=== PATIENT | male | born 1955 | race Caucasian/White ===

== ENCOUNTER 2017-05-08 08:44 | Emergency (ER) | payer OTHER ==
[2017-05-08] MEDS ORDERED: Sodium Chloride 0.9% 10 ML Syringe FLUSH PRN (09:34)
[2017-05-08] MEDS ORDERED: Morphine 2 MG/ML Syringe IVPUSH ONE ×2 (09:39→11:23)
[2017-05-08] MEDS ORDERED: Ondansetron 4 MG/2 ML SDV IVPUSH ONE (09:39)
[2017-05-08] MEDS ORDERED: Sodium Chloride 0.9% 1,000 ML IV SCH (09:45)
--- NOTE | 2017-05-08 09:49 | EDM.PDOC ---
<Ayana Loco - Last Filed: 05/08/17 09:43> ED HPI GENERAL MEDICAL PROBLEM - General Chief Complaint: Back Pain or Injury Stated Complaint: LEFT SIDE BACK PAIN SENT FROM [facility] Time Seen by Provider: 05/08/17 09:21 - History of Present Illness INITIAL COMMENTS - FREE TEXT/NARRATIVE: Patient is a 61 year old male here for complaints of lower back pain that began about 12:30am this morning. He states the pain woke him up and he was unable to get to sleep or find a comfortable position. He had some associated sweating with the pain, but denies nausea or vomiting. The pain is worse on the left and radiates around into his left groin. He rates the pain a 8/10 and has not tried anything for pain. He states he has drank at least 4 16 oz glasses of water, but has not urinated yet today. He states he passed a kidney stone without treatment about 7 years ago. He takes no chronic medications. 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 left lower flank Pain Score (Numeric/FACES): 6 - Related Data Allergies Allergy/AdvReac Type Severity Reaction Status Date / Time Sulfa (Sulfonamide Allergy Headache Verified 05/08/17 08:53 Antibiotics) Home Meds: Home Meds . [No Known Home Meds] 05/08/17 [History] Past Medical History - Past Health History Medical/Surgical History: Denies Medical/Surgical History Genitourinary History: Reports: Renal Calculus Social & Family History - Family History Family Medical History: Noncontributory - Tobacco Use Smoking Status *Q: Never Smoker - Caffeine Use Caffeine Use: Reports: None - Recreational Drug Use Recreational Drug Use: No ED ROS GENERAL - Review of Systems Review Of Systems: See Below Constitutional: Reports: No Symptoms Respiratory: Reports: No Symptoms Cardiovascular: Reports: No Symptoms GI/Abdominal: Reports: No Symptoms. Denies: Abdominal Pain : Reports: No Symptoms ED EXAM,LOWER BACK PAIN/INJURY - Physical Exam Exam Limited By: No Limitations General Appearance: Alert, Mild Distress Respiratory/Chest: No Respiratory Distress, Normal Breath Sounds Cardiovascular: Regular Rate, Rhythm GI/Abdominal: Normal Bowel Sounds, No Distention Psychiatric: Normal Affect, Normal Mood Course - Vital Signs Last Recorded V/S: Last Vital Signs Temp 97 F 05/08/17 08:48 Pulse 57 L 05/08/17 08:48 Resp 18 05/08/17 08:48 BP 150/89 H 05/08/17 08:48 Pulse Ox 99 05/08/17 08:48 - Orders/Labs/Meds Orders: Active Orders 24 hr Category Date Time Status Peripheral IV Care [RC] . DIRECTED Care 05/08/17 09:34 Active UA W/MICROSCOPIC [URIN] Stat Lab 05/08/17 09:15 Ordered Sodium Chloride 0.9% [Normal Saline] 1,000 ml Med 05/08/17 09:45 Active IV ASDIRECTED Sodium Chloride 0.9% [Saline Flush] Med 05/08/17 09:34 Active 10 ml FLUSH ASDIRECTED PRN Peripheral IV Insertion Adult [OM.PC] Stat Oth 05/08/17 09:34 Ordered Medication Orders Sodium Chloride (Normal Saline) 1,000 mls @ 150 mls/hr IV ASDIRECTED DELVIN Last Admin: 05/08/17 09:49 Dose: 150 mls/hr Sodium Chloride (Saline Flush) 10 ml FLUSH ASDIRECTED PRN PRN Reason: Keep Vein Open Last Admin: 05/08/17 09:53 Dose: 10 ml Labs: Laboratory Tests 05/08/17 05/08/17 Range/Units 09:10 09:10 WBC 10.26 H (4.23-9.07) K/mm3 RBC 5.20 (4.63-6.08) M/mm3 Hgb 15.6 (13.7-17.5) gm/L Hct 44.4 (40.1-51.0) % MCV 85.4 (79.0-92.2) fl MCH 30.0 (25.7-32.2) pg MCHC 35.1 (32.2-35.5) g/dl RDW Std Deviation 39.5 (35.1-43.9) fL Plt Count 219 (163-337) K/mm3 MPV 9.3 L (9.4-12.3) fl Neut % (Auto) 90.5 H (34.0-67.9) % Lymph % (Auto) 4.6 L (21.8-53.1) % [place] % (Auto) 4.3 L (5.3-12.2) % Eos % (Auto) 0.2 L (0.8-7.0) Baso % (Auto) 0.2 (0.1-1.2) % Neut # (Auto) 9.29 H (1.78-5.38) K/mm3 Lymph # (Auto) 0.47 L (1.32-3.57) K/mm3 [place] # (Auto) 0.44 (0.30-0.82) K/mm3 Eos # (Auto) 0.02 L (0.04-0.54) K/mm3 Baso # (Auto) 0.02 (0.01-0.08) K/mm3 Manual Slide Review Abnormal smear Sodium 135 L (136-145) mEq/L Potassium 3.5 (3.5-5.1) mEq/L Chloride 100 (98-107) mEq/L Carbon Dioxide 23 (21-32) mEq/L Anion Gap 15.5 H (5-15) BUN 15 (7-18) mg/dL Creatinine 1.5 H (0.7-1.3) mg/dL Est Cr Clr Drug Dosing 46.45 mL/min Estimated GFR (MDRD) 48 (>60) mL/min BUN/Creatinine Ratio 10.0 L (14-18) Glucose 116 H (80-115) mg/dL Calcium 8.9 (8.5-10.1) mg/dL Total Bilirubin 1.0 (0.2-1.0) mg/dL AST 24 (15-37) U/L ALT 38 (16-63) U/L Alkaline Phosphatase 91 (46-116) U/L Total Protein 7.4 (6.4-8.2) g/dl Albumin 3.9 (3.4-5.0) g/dl Globulin 3.5 gm/dL Albumin/Globulin Ratio 1.1 (1-2) Meds: Medications Generic Name Dose Route Start Last Admin Trade Name Freq PRN Reason Stop Dose Admin Sodium Chloride 1,000 mls @ 150 mls/hr 05/08/17 09:45 05/08/17 09:49 Normal Saline IV 150 mls/hr ASDIRECTED DELVIN Administration Sodium Chloride 10 ml 05/08/17 09:34 05/08/17 09:53 Saline Flush FLUSH 10 ml ASDIRECTED PRN Administration Keep Vein Open Discontinued Medications Generic Name Dose Route Start Last Admin Trade Name Toddq PRN Reason Stop Dose Admin Morphine Sulfate 4 mg 05/08/17 09:39 05/08/17 09:51 Morphine IVPUSH 05/08/17 09:40 4 mg ONETIME ONE Administration Ondansetron HCl 4 mg 05/08/17 09:39 05/08/17 09:50 Zofran IVPUSH 05/08/17 09:40 4 mg ONETIME ONE Administration Departure - Departure Disposition: DC/Tfer to [facility] 02 Clinical Impression: Kidney stone on left side, Hydronephrosis due to obstruction of ureter - Discharge Information Referrals: PCP,None [Primary Care Provider] - Forms: ED Department Discharge Additional Instructions: Transfer to [facility] ED, [place]. You will be reevaluated there , admitted for stone removal. You may drink water but eating not recommended at this time not knowing when the procedure will be done. You have been given sedating pain medication while here in the ED so do not personally drive for the remainder of today. - My Orders Last 24 Hours: My Active Orders 05/08/17 09:15 UA W/MICROSCOPIC [URIN] Stat 05/08/17 09:34 Peripheral IV Care [RC] . DIRECTED Sodium Chloride 0.9% [Saline Flush] 10 ml FLUSH ASDIRECTED PRN Peripheral IV Insertion Adult [OM.PC] Stat 05/08/17 09:45 Sodium Chloride 0.9% [Normal Saline] 1,000 ml IV ASDIRECTED - Assessment/Plan Last 24 Hours: My Active Orders 05/08/17 09:15 UA W/MICROSCOPIC [URIN] Stat 05/08/17 09:34 Peripheral IV Care [RC] . DIRECTED Sodium Chloride 0.9% [Saline Flush] 10 ml FLUSH ASDIRECTED PRN Peripheral IV Insertion Adult [OM.PC] Stat 05/08/17 09:45 Sodium Chloride 0.9% [Normal Saline] 1,000 ml IV ASDIRECTED <Josh Dixon - Last Filed: 05/08/17 11:26> ED ROS GENERAL - Review of Systems : Denies: Frequency, Pain, Urgency Musculoskeletal: Reports: Back Pain (Left back, left flank discomfort radiating to left groin), Other Skin: Reports: No Symptoms Neurological: Reports: No Symptoms ED EXAM,LOWER BACK PAIN/INJURY - Physical Exam Exam: See Below Throat/Mouth: Normal Inspection Head: Atraumatic GI/Abdominal: Non-Tender Back Exam: No: CVA Tenderness (L), CVA Tenderness (R) Extremities: Normal Inspection, Normal Range of Motion Neurological: Alert, No Motor/Sensory Deficits, Oriented x 3 Skin Exam: Warm, Dry, Normal Color Course - Re-Assessments/Exams Free Text/Narrative Re-Assessment/Exam: 05/08/17 10:36 Initial hx and exam was done by Ayana Monique. I agree with her hx and exam as documented. I have also visited with patient, examined patient. Renal CT does show 6 mm obstructing stone distal left ureter near the UVJ. See radiology report for details. We have given morphine 4 mg IV, Zofran 4 mg IV. 05/08/17 11:18. Have discussed with Dr Abdalla, Urologist's nurse, [place]. He suggests transfer to [facility] [place] for admission for stone removal. We will be sending him by private vehicle, his daughter will drive him. Dr Dobson, ED accepting Phys. Departure - Departure Time of Disposition: 11:22 Condition: Fair
--- NOTE | 2017-05-08 10:25 | CT ---
CT abdomen and pelvis Technique: Multiple axial sections were obtained from above the dome of the diaphragm inferiorly through the pubic symphysis. Intravenous and oral contrast was not utilized. Study has been performed as a ureteral stone protocol. Comparison: No previous study. Findings: Hydronephrosis is seen of the left kidney and ureter. Inflammatory change is noted around the left kidney. These findings are caused by an obstructing stone located within the distal left ureter measuring 6 mm and is located near the UVJ. No other abnormal calcifications are seen along the course of the ureters. No abnormal calcifications are seen within the kidneys. Incidental calcified splenic granulomas are seen. Calcified granuloma is noted within the left lung base. Noncontrast appearance of the liver appears within normal limits. Gallbladder contains no calcified gallstones. Adrenal glands show no nodule. Pancreas is within normal limits. Aorta shows no aneurysmal dilatation. No retroperitoneal adenopathy is seen. No mesenteric abnormalities are identified. No bowel dilatation is seen. Appendix is felt to be visualized and appears normal in size. Bone window settings were reviewed which appear within normal limits for the patient's age. Impression: 1. Obstructing 6 mm calculus within the distal left ureter near the UVJ. 2. Other incidental findings as noted above. Diagnostic code #3
== END 2017-05-08 12:00 ==
LOC: JD.ED 08:44
DX: N13.2 Hydronephrosis with renal and ureteral calculous obstruction (principal); Z88.2 Allergy status to sulfonamides
CPT/HCPCS: 36415; 74176; 80053; 81001; 85025; 96361; 96374; 96375; 96376; 99285; J2270; J2405; J7040; J7050; 99284

== ENCOUNTER 2021-01-21 09:06 | Emergency (ER) | payer OTHER, MEDICARE ==
--- NOTE | 2021-01-21 09:26 | EDM.PDOC ---
ED HPI GENERAL MEDICAL PROBLEM - General Chief Complaint: Respiratory Problem Stated Complaint: COVID+ COUGH Time Seen by Provider: 01/21/21 09:25 Source of Information: Reports: Patient History Limitations: Reports: No Limitations - History of Present Illness INITIAL COMMENTS - FREE TEXT/NARRATIVE: 65-year-old male presents to the ED after being seen at the walk-in clinic this morning. Chief complaint is severe paroxysmal cough to the point of emesis at times. Patient was diagnosed with COVID-19 positivity on January 16. He was exposed the day prior to a person who has Covid but was not telling anybody that he was positive. Patient of course is quite frustrated by this. He has not been vaccinated against COVID-19 illness. Developed fever chills body aches minimal nasal congestion with retention of smell and taste. Mild sore throat severe paroxysmal cough to the point of emesis on multiple occasions. Diarrhea this morning for the first time yellow and liquidy. Loss of appetite. Has not been able to sleep due to paroxysmal cough for the last 3 days. Has been sitting up in bed to try and relieve cough. Been taking Tylenol Motrin intermittently for fever relief. Patient states his contracted the illness first and was seen through the ED a week ago. Onset: Sudden Onset Date: 01/16/21 Duration: Day(s):, Getting Worse Location: Reports: Head (Headache), Neck, Chest (Mild sore throat minimal nasal congestion severe paroxysmal cough of occasional white sputum often associated with vomiting from coughing so hard), Other (Generalized myalgia fever and chills mild diarrhea this morning) Quality: Reports: Ache, Throbbing (.) Severity: Moderate (8 out of 10) Improves with: Reports: Rest (He feels if he could sleep he would feel better) Worsens with: Reports: Movement (And paroxysmal cough) Context: Reports: Sick Contact (Opposed to a person). Denies: Activity, Exercise, Lifting, Trauma ( with COVID-19 illness day prior to onset of illness.), Other Associated Symptoms: Reports: Cough, cough w sputum (Severe paroxysmal cough to the point of emesis occasional white), Diaphoresis ( sputum), Fever/Chills, Headaches, Loss of Appetite, Malaise, Nausea/Vomiting, Shortness of Breath (Subjective dyspnea [place]), Weakness ( cannot take a deep breath without coughing.), Other (Complete loss of appetite.). Denies: Rash (Posttussive vomiting), Seizure Treatments [employer]: Reports: Acetaminophen Chest Pain Score (Numeric/FACES): 5 - Related Data Allergies Allergy/AdvReac Type Severity Reaction Status Date / Time Sulfa (Sulfonamide AdvReac Headache Verified 01/21/21 09:22 Antibiotics) Home Meds: Home Meds Hydrocodone/Chlorphen P-Stirex [Hydrocodone-Chlorphen ER Susp] 5 ml PO Q12H PRN #60 ml 01/21/21 [Rx] Potassium Chloride 20 meq PO BID #5 tablet.er 01/21/21 [Rx] Past Medical History - Past Health History Medical/Surgical History: Denies Medical/Surgical History Genitourinary History: Reports: Renal Calculus - Past Surgical History GI Surgical History: Reports: Appendectomy (Age 7 when he had his hernia surgery on the left side.?), Hernia, Inguinal (Left inguinal hernia raphe at age 7. He believes he also had a appendectomy carried out at that time.) Social & Family History - Family History Family Medical History: No Pertinent Family History - Tobacco Use Tobacco Use Status *Q: Never Tobacco User - Caffeine Use Caffeine Use: Reports: None - Living Situation & Occupation Living situation: Reports: Occupation: Employed ED ROS GENERAL - Review of Systems Review Of Systems: See Below ( is asymptomatic at this time) Constitutional: Reports: Fever, Chills, Malaise, Weakness, Fatigue, Decreased Appetite HEENT: Reports: Glasses, Rhinitis, Throat Pain Respiratory: Reports: Shortness of Breath, Cough, Sputum (Severe paroxysmal cough to the point of emesis at times slightly). Denies: Wheezing, Pleuritic Chest Pain, Hemoptysis ( green-tinged sputum.) Cardiovascular: Reports: Chest Pain, Lightheadedness (From coughing so hard). Denies: Blood Pressure Problem (Upper anterior chest pain from coughing so much), Claudication, Dyspnea on Exertion, Orthopnea, Palpitations, Syncope, Other Endocrine: Reports: Fatigue GI/Abdominal: Reports: Diarrhea (One loose diarrhea stool this morning), Decreased Appetite, Nausea, Vomiting (Posttussive vomiting) : Reports: Other (Urine is dark and aidan in color) Musculoskeletal: Reports: Muscle Pain (Neurolyse myalgia particularly head neck) Skin: Reports: No Symptoms ( lower back and thigh muscles) Neurological: Reports: Dizziness, Headache, Difficulty Walking Psychiatric: Reports: No Symptoms Hematologic/Lymphatic: Reports: No Symptoms (Due to weakness) Immunologic: Reports: No Symptoms ED EXAM, GENERAL - Physical Exam Exam: See Below Exam Limited By: No Limitations General Appearance: Alert, WD/WN, Moderate Distress (Near paroxysmal cough to the point that he can barely talk.), Other (Feels very warm to palpation nurses recorded temperature of 38.4 degrees. Heart rate is 80 and sinus respiratory is 20 with O2 sats of 92 to 94% room air BP 120/83) Eye Exam: Bilateral Eye: Normal Inspection (No blepharal pallor or scleral icterus), PERRL Ears: Normal TMs Throat/Mouth: Normal Inspection, Normal Lips, Normal Teeth, Normal Voice Head: Atraumatic, Normocephalic Neck: Normal Inspection, Supple, Non-Tender, Full Range of Motion. No: Carotid Bruit, Lymphadenopathy (L), Lymphadenopathy (R) Respiratory/Chest: Lungs Clear, No Accessory Muscle Use, Respiratory Distress (Tachypnea at rest with harsh paroxysmal nonproductive cough). No: Rhonchi, Wheezing, Stridor, Pleural Rub Cardiovascular: Normal Peripheral Pulses, Regular Rate, Rhythm, No Edema, No Gallop, No JVD, No Rub Peripheral Pulses: 3+: Carotid (L), Carotid (R), Posterior Tibial (L), Posterior Tibial (R), Dorsalis Pedis (L), Dorsalis Pedis (R) GI/Abdominal: Normal Bowel Sounds, Soft, Non-Tender, No Organomegaly, Other (Scaphoid abdomen. Left inguinal hernia raphe scar) Back Exam: Normal Inspection, Full Range of Motion. No: CVA Tenderness (L), CVA Tenderness (R) Extremities: Normal Inspection, Normal Range of Motion, Non-Tender, No Pedal Edema Neurological: Alert, Oriented, CN II-XII Intact, Normal Cognition Psychiatric: Anxious Skin Exam: Warm, Dry, Intact, Normal Color, No Rash #1 Interpretation EKG Date: 01/21/21 Time: 09:51 Rhythm: NSR Rate (Beats/Min): 80 [place]: LAD-Left [place] Deviation (Mild left axis deviation -9 degrees) P-Wave: Present (Borderline short NE interval.) QRS: Other (Early R wave transition V2 consider right ventricular hypertrophy versus septal hypertrophy pattern) ST-T: Depressed (Diffuse ST segment depression V3 to V6 also appreciated in leads I and II and aVF. Consider ischemia but this most likely represents repolarization abnormality) QT: Normal EKG Interpretation Comments: Borderline ECG Course - Vital Signs Last Recorded V/S: Last Vital Signs Temp 38.4 C H 01/21/21 09:16 Pulse 80 01/21/21 09:16 Resp 20 01/21/21 09:16 BP 120/83 01/21/21 09:16 Pulse Ox 92 L 01/21/21 09:16 - Orders/Labs/Meds Orders: Active Orders 24 hr Category Date Time Status Vital Signs [RC] Q15M Care 01/21/21 10:14 Active Dextrose 5%-0.9% NaCl [Dextrose 5%-Normal Saline] 1,000 Med 01/21/21 09:45 Active ml IV ASDIRECTED EPINEPHrine [Adrenalin] Med 01/21/21 10:14 Active 0.3 mg IM ASDIRECTED PRN Famotidine [Pepcid] Med 01/21/21 10:14 Active 20 mg IVPUSH ASDIRECTED PRN Sodium Chloride 0.9% [Saline Flush] Med 01/21/21 10:15 Active 30 ml FLUSH ASDIRECTED diphenhydrAMINE [Benadryl] Med 01/21/21 10:14 Active 50 mg IVPUSH ASDIRECTED PRN methylPREDNISolone Sod Succ [Solu-MEDROL] Med 01/21/21 10:14 Active 125 mg IVPUSH ASDIRECTED PRN Medication Orders Diphenhydramine HCl (Diphenhydramine 50 Mg/Ml Sdv) 50 mg IVPUSH ASDIRECTED PRN PRN Reason: hypersensitivity reaction Epinephrine HCl (Epinephrine 1 Mg/Ml Sdv) 0.3 mg IM ASDIRECTED PRN PRN Reason: hypersensitivity reaction Famotidine (Famotidine 20 Mg/2 Ml Sdv) 20 mg IVPUSH ASDIRECTED PRN PRN Reason: hypersensitivity reaction Dextrose/Sodium Chloride (Dextrose 5%-Normal Saline) 1,000 mls @ 250 mls/hr IV ASDIRECTED DELVIN Last Admin: 01/21/21 10:14 Dose: 250 mls/hr Documented by: MARINO Methylprednisolone Sodium Succinate (Methylprednisolone Sodium Succinate 125 Mg/2 Ml Sdv) 125 mg IVPUSH ASDIRECTED PRN PRN Reason: hypersensitivity reaction Sodium Chloride (Sodium Chloride 0.9% 10 Ml Syringe) 30 ml FLUSH ASDIRECTED DELVIN Labs: Laboratory Tests 01/21/21 01/21/21 01/21/21 Range/Units 09:40 09:40 09:40 WBC 4.14 L (4.23-9.07) K/mm3 RBC 5.10 (4.63-6.08) M/mm3 Hgb 15.3 (13.7-17.5) gm/dl Hct 44.3 (40.1-51.0) % MCV 86.9 (79.0-92.2) fl MCH 30.0 (25.7-32.2) pg MCHC 34.5 (32.2-35.5) g/dl RDW Std Deviation 42.2 (35.1-43.9) fL Plt Count 139 L D (163-337) K/mm3 MPV 9.3 L (9.4-12.3) fl Neut % (Auto) 80.3 H (34.0-67.9) % Lymph % (Auto) 11.8 L (21.8-53.1) % Oliver % (Auto) 7.5 (5.3-12.2) % Eos % (Auto) 0 L (0.8-7.0) Baso % (Auto) 0.2 (0.1-1.2) % Neut # (Auto) 3.32 (1.78-5.38) K/mm3 Lymph # (Auto) 0.49 L (1.32-3.57) K/mm3 Oliver # (Auto) 0.31 (0.30-0.82) K/mm3 Eos # (Auto) 0.00 L (0.04-0.54) K/mm3 Baso # (Auto) 0.01 (0.01-0.08) K/mm3 PT 10.9 (9.7-12.0) SECONDS INR 0.98 APTT 33.3 H (21.7-31.4) SECONDS D-Dimer, Quantitative (0.19-0.50) mg/L Sodium 133 L (136-145) mEq/L Potassium 2.8 L (3.5-5.1) mEq/L Chloride 95 L (98-107) mEq/L Carbon Dioxide 26 (21-32) mEq/L Anion Gap 14.8 (5-15) BUN 13 (7-18) mg/dL Creatinine 1.2 (0.7-1.3) mg/dL Est Cr Clr Drug Dosing 59.06 mL/min Estimated GFR (MDRD) > 60 (>60) mL/min BUN/Creatinine Ratio 10.8 L (14-18) Glucose 101 H (70-99) mg/dL Calcium 8.0 L (8.5-10.1) mg/dL Magnesium 1.8 (1.8-2.4) mg/dL Total Bilirubin 0.8 (0.2-1.0) mg/dL AST 53 H (15-37) U/L ALT 35 (16-63) U/L Alkaline Phosphatase 82 (46-116) U/L Lactate Dehydrogenase 318 H (85-227) U/L Troponin I < 0.017 (0.00-0.056) ng/mL C-Reactive Protein 5.3 H* (<1.0) mg/dL NT-Pro-B Natriuret Pep (0-125) pg/mL Total Protein 7.1 (6.4-8.2) g/dl Albumin 3.2 L (3.4-5.0) g/dl Globulin 3.9 gm/dL Albumin/Globulin Ratio 0.8 L (1-2) 01/21/21 01/21/21 Range/Units 09:40 09:40 WBC (4.23-9.07) K/mm3 RBC (4.63-6.08) M/mm3 Hgb (13.7-17.5) gm/dl Hct (40.1-51.0) % MCV (79.0-92.2) fl MCH (25.7-32.2) pg MCHC (32.2-35.5) g/dl RDW Std Deviation (35.1-43.9) fL Plt Count (163-337) K/mm3 MPV (9.4-12.3) fl Neut % (Auto) (34.0-67.9) % Lymph % (Auto) (21.8-53.1) % Oliver % (Auto) (5.3-12.2) % Eos % (Auto) (0.8-7.0) Baso % (Auto) (0.1-1.2) % Neut # (Auto) (1.78-5.38) K/mm3 Lymph # (Auto) (1.32-3.57) K/mm3 Oliver # (Auto) (0.30-0.82) K/mm3 Eos # (Auto) (0.04-0.54) K/mm3 Baso # (Auto) (0.01-0.08) K/mm3 PT (9.7-12.0) SECONDS INR APTT (21.7-31.4) SECONDS D-Dimer, Quantitative 1.05 H (0.19-0.50) mg/L Sodium (136-145) mEq/L Potassium (3.5-5.1) mEq/L Chloride (98-107) mEq/L Carbon Dioxide (21-32) mEq/L Anion Gap (5-15) BUN (7-18) mg/dL Creatinine (0.7-1.3) mg/dL Est Cr Clr Drug Dosing mL/min Estimated GFR (MDRD) (>60) mL/min BUN/Creatinine Ratio (14-18) Glucose (70-99) mg/dL Calcium (8.5-10.1) mg/dL Magnesium (1.8-2.4) mg/dL Total Bilirubin (0.2-1.0) mg/dL AST (15-37) U/L ALT (16-63) U/L Alkaline Phosphatase (46-116) U/L Lactate Dehydrogenase (85-227) U/L Troponin I (0.00-0.056) ng/mL C-Reactive Protein (<1.0) mg/dL NT-Pro-B Natriuret Pep 91 (0-125) pg/mL Total Protein (6.4-8.2) g/dl Albumin (3.4-5.0) g/dl Globulin gm/dL Albumin/Globulin Ratio (1-2) Meds: Medications Generic Name Dose Route Start Last Admin Trade Name Freq PRN Reason Stop Dose Admin Diphenhydramine HCl 50 mg 01/21/21 10:14 Diphenhydramine 50 Mg/Ml Sdv IVPUSH ASDIRECTED PRN hypersensitivity reaction Epinephrine HCl 0.3 mg 01/21/21 10:14 Epinephrine 1 Mg/Ml Sdv IM ASDIRECTED PRN hypersensitivity reaction Famotidine 20 mg 01/21/21 10:14 Famotidine 20 Mg/2 Ml Sdv IVPUSH ASDIRECTED PRN hypersensitivity reaction Dextrose/Sodium Chloride 1,000 mls @ 250 mls/hr 01/21/21 09:45 01/21/21 10:14 Dextrose 5%-Normal Saline IV 250 mls/hr ASDIRECTED DELVIN Administration Methylprednisolone Sodium Succinate 125 mg 01/21/21 10:14 Methylprednisolone Sodium Succinate 125 Mg/2 Ml Sdv IVPUSH ASDIRECTED PRN hypersensitivity reaction Sodium Chloride 30 ml 01/21/21 10:15 Sodium Chloride 0.9% 10 Ml Syringe FLUSH ASDIRECTED DELVIN Discontinued Medications Generic Name Dose Route Start Last Admin Trade Name Freq PRN Reason Stop Dose Admin Hydromorphone HCl 0.5 mg 01/21/21 09:42 01/21/21 10:11 Hydromorphone 0.5 Mg/0.5 Ml Syringe IVPUSH 01/21/21 09:43 0.5 mg ONETIME ONE Administration Bamlanivimab 700 mg/ 310 mls @ 310 mls/hr 01/21/21 10:30 01/21/21 10:59 Etesevimab 1,400 mg/ Sodium IV 01/21/21 11:29 310 mls/hr Chloride ONETIME ONE Administration Potassium Chloride 10 meq/ 100 mls @ 100 mls/hr 01/21/21 11:45 01/21/21 13:40 Premix IV 01/21/21 13:44 100 mls/hr Q1H DELVIN Administration Metoclopramide HCl 7.5 mg 01/21/21 09:42 01/21/21 10:11 Metoclopramide 10 Mg/2 Ml Sdv IVPUSH 01/21/21 09:43 7.5 mg ONETIME ONE Administration Potassium Chloride 20 meq 01/21/21 11:48 01/21/21 12:00 Potassium Chloride 20 Meq Tab.Er PO 01/21/21 11:49 20 meq ONETIME ONE Administration - Radiology Interpretation Free Text/Narrative:: 65-year-old male presents to the ED with known Covid positivity diagnosed on December 16 the same day that he developed symptoms of COVID-19 illness. He has developed a severe paroxysmal cough to the point of emesis and inability to sleep. Mild sore throat mild nasal congestion one loose diarrhea stool this morning. Posttussive vomiting. Generalized fever chills and myalgia. He was sent over from the [place] walk-in clinic as he is a candidate for monoclonal antibody therapy. Plan chest x-ray to be done ECG. Routine labs to be done. Fax sheet given to him about monoclonal antibody therapy. He will receive IV D5 normal saline at 200 mils an hour. Given Dilaudid 0.5 mg IV for myalgia relief and also to help stop his cough. Reglan 7.5 mg IV. Tylenol nine seven 5 mg p.o. for fever relief. - Re-Assessments/Exams Free Text/Narrative Re-Assessment/Exam: 01/21/21 10:07 chest x-ray done portably reveals borderline cardiomegaly. He does have diffuse infiltrates right upper lobe right middle lobe right lower lobe and left lower lobe compared with Covid pneumonia. 01/21/21 10:14 I have discussed the findings of the chest x-ray with the patient indicating that he has 4-5 lung lobes involved with viral pneumonia at this time. He has read the information sheet on monoclonal antibody therapy and has agreed to approach this form of therapy. He has read the fax sheet for patients and caregivers. He appreciates the therapy has been approved by an emergency use authorization process and has not been fully vetted by the FDA or reviewed or approved at this time. I shared potential risks from the therapy such as allergic reaction including anaphylaxis which can be fatal. I discussed there are other potential treatment options that are currently not FDA approved to treat COVID-19 but now do not apply to him at this time. Offered opportunity ask questions and all questions were answered. The patient Mr. Dannie collier voiced understanding and agreed to proceed with treatment for himself. 01/21/21 11:43 Labs reveal a white count of 4.14 with auto differential revealing 80.3% neutrophils. Hemoglobin is 15.3 with hematocrit of 44.3. Platelet count is low normal at 139,000. PT is 10.9 with an INR of 0.98. PTT is elevated at 33.3. D-dimer is elevated at 1.05. Sodium slightly low at 133 with a potassium of only 2.8. Chloride is 95 with a bicarb of 26. Anion gap is 14.8. BUN is 13 with a creatinine of 1.2 and a GFR greater than 60. Glucose is 101. Calcium is 8.0 magnesium is 1.8. Bilirubin is 0.8 AST mildly elevated at 53 ALT is normal at 35 alkaline phosphatase is normal at 82. LDH is elevated at 318. Troponin I is less than 0.017 C-reactive protein is 5.3 BNP is 91. Total protein 7.1 with an albumin fraction of 3.2 01/21/21 11:49 Patient has completed his monoclonal antibody therapy infusion without any problems. He will now enter the monitoring phase. Since his potassium is 2.8 he will receive 2K riders IV and I will give him 20 mEq p.o. as he does not want to eat anything at this time. 01/21/21 13:04 patient has completed his 1 hour post monoclonal antibody infusion evaluation with no problems. He will finish up his second dose of potassium infusion and then he will be discharged home with oral potassium 20 mEq twice daily for another 2-1/2 days until he regains his appetite. He will continue to use Tylenol and Motrin as needed for fever and headache relief. He does have 4 lobe pneumonia out of 5. He is at high risk of having to return to the ED. O2 sats at this time are 93% 01/21/21 13:30 Patient started his second K rider at 1313 hrs. He will therefore be ready to be discharged about 2:15. 01/21/21 14:30: Patient has finished his second K rider. He is feeling improved. Still not very hungry. He will be discharged to home. He has a pulse oximeter at home and he will check his oxygen levels at least 4 times daily. Departure - Departure Time of Disposition: 14:41 Disposition: Home, Self-Care 01 Condition: Fair Clinical Impression: COVID-19 determined by clinical diagnostic criteria, Viral pneumonia, Hypokalemia due to inadequate potassium intake - Discharge Information *PRESCRIPTION DRUG MONITORING PROGRAM REVIEWED*: Not Applicable *COPY OF PRESCRIPTION DRUG MONITORING REPORT IN PATIENT LYNNE: Not Applicable Prescriptions: Hydrocodone/Chlorphen P-Stirex [Hydrocodone-Chlorphen ER Susp] 5 ml PO Q12H PRN #60 ml PRN Reason: COVID-19 viral pneumonia Potassium Chloride 20 meq PO BID #5 tablet.er Instructions: What You Should Know About COVID-19 to Protect Yourself and Others - CDC, 10 Things You Can Do to Manage Your COVID-19 Symptoms at Home - CDC (09/15/2020), COVID-19: Quarantine vs. Isolation - [facility] (02/17/2020) Referrals: PCP,None [Primary Care Provider] - Forms: ED Department Discharge Additional Instructions: Evaluation in the emergency room today in regards to known diagnosis of COVID-19 illness with symptoms starting on FridayJanuary 17. You are considered contagious to others for prostate 12 days from the time of symptom onset which for you would be January 29. This means quarantining and avoiding people at a ll cost to prevent transmission of this virus. X-ray today did reveal evidence of viral pneumonia in 4 out of 5 lobes of your lungs. Your oxygen level was still satisfactory at 94 to 96% on room air. You are a candidate for monoclonal antibody therapy and you opted for this treatment plan. You therefore received 2 antibodies against the COVID-19 virus intravenously while in the emergency department. The idea behind this is giving you immediate immunity to the COVID- 19 virus and hopefully keep the disease from worsening in your lungs particularly and putting you in the hospital. The only other positive finding on lab work was a low serum potassium level at 2.8 and this is occurred from not being able to eat adequately for the last few days. You are given 2 doses of potassium intravenously in the emergency department and an oral dose of potassium called K-Dur 20 mEq. You will need to take this tablet twice daily for the next 2-1/2 days to improve your potassium level back to normal until you can regain your appetite. A lot of patients feel much better within the next day or 2 after receiving the monoclonal antibody therapy. You will need to continue to use either Tylenol or Motrin as needed for fever, headache and body ache relief. I have written a prescription for cough syrup Tussionex 5 mils every 12 hours as needed for cough relief. It is usually taken about an hour before planning to go to bed as it takes an hour to work and the idea behind it is to allow you to sleep without coughing all night. You already have a pulse oximeter and you should check your oxygen levels in your blood stream about 4 times daily. Concern should arise if your blood oxygen level is staying around 88% or lower for 2 consecutive hours. This would mean coming into the hospital. Make sure your hands are very warm at the time that you use the pulse oximeter as if they are cold it will give you a fictitious reading of being too low. Sepsis Event Note (ED) - Evaluation Sepsis Screening Result: No Definite Risk - Focused Exam Vital Signs: Vital Signs Temp Pulse Resp BP Pulse Ox 01/21/21 09:16 38.4 C H 80 20 120/83 92 L - My Orders Last 24 Hours: My Active Orders 01/21/21 09:45 Dextrose 5%-0.9% NaCl [Dextrose 5%-Normal Saline] 1,000 ml IV ASDIRECTED 01/21/21 10:14 Vital Signs [RC] Q15M EPINEPHrine [Adrenalin] 0.3 mg IM ASDIRECTED PRN Famotidine [Pepcid] 20 mg IVPUSH ASDIRECTED PRN diphenhydrAMINE [Benadryl] 50 mg IVPUSH ASDIRECTED PRN methylPREDNISolone Sod Succ [Solu-MEDROL] 125 mg IVPUSH ASDIRECTED PRN 01/21/21 10:15 Sodium Chloride 0.9% [Saline Flush] 30 ml FLUSH ASDIRECTED - Assessment/Plan Last 24 Hours: My Active Orders 01/21/21 09:45 Dextrose 5%-0.9% NaCl [Dextrose 5%-Normal Saline] 1,000 ml IV ASDIRECTED 01/21/21 10:14 Vital Signs [RC] Q15M EPINEPHrine [Adrenalin] 0.3 mg IM ASDIRECTED PRN Famotidine [Pepcid] 20 mg IVPUSH ASDIRECTED PRN diphenhydrAMINE [Benadryl] 50 mg IVPUSH ASDIRECTED PRN methylPREDNISolone Sod Succ [Solu-MEDROL] 125 mg IVPUSH ASDIRECTED PRN 01/21/21 10:15 Sodium Chloride 0.9% [Saline Flush] 30 ml FLUSH ASDIRECTED
[2021-01-21] MEDS ORDERED: HYDROmorphone 0.5 MG/0.5 ML Syringe IVPUSH ONE (09:42)
[2021-01-21] MEDS ORDERED: Metoclopramide 10 MG/2 ML SDV IVPUSH ONE (09:42)
[2021-01-21] MEDS ORDERED: Dextrose 5%-0.9% NaCl 1,000 ML IV SCH (09:45)
--- NOTE | 2021-01-21 10:08 | CR ---
Chest: Frontal view of the chest was obtained. Comparison: No prior chest imaging is available. Patchy increased density is seen within both sides of the chest. Heart size and mediastinum are within normal limits. No acute osseous abnormality is appreciated. Impression: 1. Patchy increased density on both sides of the chest. Findings are suspicious for moderate COVID pneumonia. Diagnostic code #3
[2021-01-21] MEDS ORDERED: EPINEPHrine 1 MG/ML SDV IM PRN (10:14)
[2021-01-21] MEDS ORDERED: diphenhydrAMINE 50 MG/ML SDV IVPUSH PRN (10:14)
[2021-01-21] MEDS ORDERED: methylPREDNISolone Sodium Succinate 125 MG/2 ML SDV IVPUSH PRN (10:14)
[2021-01-21] MEDS ORDERED: Famotidine 20 MG/2 ML SDV IVPUSH PRN (10:14)
[2021-01-21] MEDS ORDERED: Sodium Chloride 0.9% 10 ML Syringe FLUSH SCH (10:15)
[2021-01-21] MEDS ORDERED: Potassium Chloride 20 MEQ Tab.ER PO ONE (11:48)
[2021-01-21] MEDS: Potassium Chloride 10 MEQ in Premix Bag 1 BAG IV SCH ×2 (12:00→13:40)
== END 2021-01-21 14:45 | disposition home or self-care (01) ==
LOC: JD.ED 09:06
DX: U07.1 COVID-19 (principal); J12.82 Pneumonia due to coronavirus disease 2019; E87.6 Hypokalemia; R79.1 Abnormal coagulation profile; Z88.2 Allergy status to sulfonamides
CPT/HCPCS: 36415; 71045; 80053; 83615; 83735; 83880; 84484; 85025; 85379; 85610; 85730; 86140; 93005; 96374; 96375; 99284; A9270; J1170; J2765; J3480; J7042; J7050; M0245; Q0245; 93010